=== PATIENT | male | born 1960 | race Native Hawaiian/Other Pacific Islander ===

== ENCOUNTER 2018-09-24 13:52 | Outpatient (CLI) | payer OTHER ==
[2018-09-24 14:37] LABS: PLATELET COUNT 277 K/uL (142-355)
[2018-09-24 14:41] LABS: POTASSIUM 4.4 mmol/L (3.6-5.2)
== END 2018-09-24 23:08 | disposition home or self-care (01) ==
LOC: LAB 13:52
PROVIDERS: Internal Medicine
DX: Z00.00 Encounter for general adult medical examination without abnormal findings (principal); Z12.5 Encounter for screening for malignant neoplasm of prostate
CPT/HCPCS: 80053; 80061; 81000; 85027

== ENCOUNTER 2018-09-29 16:02 | Outpatient (CLI) | payer OTHER | END 2018-09-29 19:50 | disposition home or self-care (01) | LOC: LAB 16:02 | DX: Z12.11 Encounter for screening for malignant neoplasm of colon (principal) | CPT/HCPCS: 82272 ==

== ENCOUNTER 2018-09-30 11:44 | Outpatient (CLI) | payer OTHER | END 2018-09-30 23:29 | disposition home or self-care (01) | LOC: LAB 11:44 | DX: Z12.11 Encounter for screening for malignant neoplasm of colon (principal) | CPT/HCPCS: 82272 ==

== ENCOUNTER 2018-10-01 07:50 | Outpatient (CLI) | payer OTHER | END 2018-10-01 19:49 | disposition home or self-care (01) | LOC: LAB 07:50 | DX: Z12.11 Encounter for screening for malignant neoplasm of colon (principal) | CPT/HCPCS: 82272 ==